=== PATIENT | female | born 1950 ===

== ENCOUNTER → 2025-01-11 | Outpatient (CLI) | payer MEDICARE, OTHER | LOC: LAB 15:23 → LAB SHORT 15:23 | DX: N39.0 Urinary tract infection, site not specified (principal); R31.9 Hematuria, unspecified | CPT/HCPCS: 87077; 87086; 87186 ==

== ENCOUNTER → 2025-01-28 | Outpatient (CLI) | payer MEDICARE, OTHER | LOC: LAB SHORT 12:12 → LAB 12:12 | DX: N39.0 Urinary tract infection, site not specified (principal) | CPT/HCPCS: 87077; 87086; 87186 ==